=== PATIENT | female | born 1995 | race Two or more races ===

== ENCOUNTER 2017-07-10 16:53 | Emergency (ER) | payer OTHER ==
[~2017-07-10] VITALS: Ht 154.9 cm; Wt 63.0 kg
[2017-07-10 17:28] VITALS: BP 142/85
== END 2017-07-10 20:10 | disposition home or self-care (01) ==
LOC: ED 19:50
DX: B34.9 Viral infection, unspecified (principal)
CPT/HCPCS: 71046; 99284